=== PATIENT | male | born 1980 | race Caucasian/White ===

== ENCOUNTER 2018-10-11 09:12 | Outpatient (CLI) | payer BC ==
--- NOTE | 2018-10-11 10:05 | RAD ---
FXR Lumbar Spine Min 4 View History: [M [age]. OR 56.16 lumbar radiculopathy] Comparison: None. Findings: There are 5 nonrib-bearing lumbar type vertebrae. No acute malalignment. Mild posterior deg enerative narrowing at the L5/S1 disc space. Mild narrowing between the L5/S1 spinous processes. Poss ible age-indeterminate anterior superior endplate fracture at T12. No listhesis. No translation with flexion or extension. No abnormal calcifications projecting over th e renal shadows. Impression: Mild degenerative disc disease at L5/S1. No translation with flexion or extension. Possible age indeterminate anterior superior endplate deformity at T12.
--- NOTE | 2018-10-11 11:37 | MRI ---
LUMBAR SPINE MRI WITHOUT CONTRAST: Date: 10/11/18 COMPARISON: None. HISTORY: Low back pain, lumbar radiculopathy. TECHNIQUE: Multiplanar, multisequence MR imaging of the lumbar spine obtained without contrast. FINDINGS: The sagittal STIR imaging demonstrates no focal area of osseous marrow edema. Lumbar vertebral body h eight and alignment appears normal. Assuming five lumbar-type vertebral bodies, conus medullaris term inates at L1. At T11-12, there is disc space narrowing and disc desiccation with anterior osteophyte formation, inc ompletely assessed on this exam. T12-L1: Unremarkable. L1-2: Unremarkable. L2-3: Unremarkable. L3-4: Mild bilateral facet hypertrophy with small volume fluid within bilateral facet joints. Interv ertebral disc height and signal intensity within normal limits, with no central canal or neural tigre inal stenosis. L4-5: Unremarkable. L5-S1: There is disc space narrowing and disc desiccation with disc bulge. There is a superimposed l eft paracentral/left foraminal disc protrusion with an associated annular tear. This causes a mild de gree of left lateral recess stenosis. There is mass effect on the exiting L5 nerve root in the post f oraminal region and there is mass effect on the S1 nerve root on the left in the lateral recess. Ther e is mild associated neural foraminal stenosis on the left. No right-sided neural foraminal stenosis. Retroperitoneal structures demonstrate no acute findings. IMPRESSION: Disc disease on the left at L5-S1 as detailed above. POS: [facility]
== END 2018-10-11 09:13 | disposition home or self-care (01) ==
LOC: TBSIIMAG 09:12
PROVIDERS: ATTEND Surgery
DX: M54.16 Radiculopathy, lumbar region (principal); M54.5 Low back pain; M51.37 Other intervertebral disc degeneration, lumbosacral region
CPT/HCPCS: 72110; 72148

== ENCOUNTER 2018-11-29 10:01 | Outpatient (CLI) | payer BC ==
--- NOTE | 2018-11-29 11:26 | MRI ---
MR THORACIC SPINE WITHOUT CONTRAST INDICATION: Pain. Thoracic radiculopathy. COMPARISON: None. FINDINGS: No intrinsic expansile lesion of the thoracic spinal cord identified. Vertebral body heights are maintained. No acute marrow edema. No significant subluxation. Multilevel incidental note of disc bulge/disc osteophyte of the cervical spine, incompletely evaluated. C7-T1: Slight left asymmetric broad-based disc bulge with mild narrowing of the ventral left neural f oramen. No high-grade central canal or right foraminal stenosis T1-T2: Mild disc osteophyte complex with mild left foraminal stenosis. No high-grade central canal or right foraminal stenosis. T2-3: Mild right foraminal narrowing due to right foraminal osteophyte. No significant left foraminal or central canal stenosis T3-4: Mild right asymmetric disc osteophyte with mild right foraminal narrowing. No significant left foraminal, or central canal stenosis T4-5: Mild right foraminal narrowing due to right foraminal osteophyte. No significant left foraminal or central canal stenosis T5-6: No significant stenosis. T6-7: No significant stenosis. T7-8: No significant stenosis. T8-9: No significant stenosis. T9-10: No significant stenosis. T10-11: Right asymmetric ligamentous hypertrophy/calcification with mild narrowing of the right subar ticular zone and encroachment upon the posterior lateral right thoracic spinal cord T11-12: Mild disc degenerative narrowing and left asymmetric disc osteophyte with mild left foraminal narrowing. No significant right foraminal or central canal stenosis IMPRESSION: Mild multilevel degenerative change throughout the thoracic spine without high-grade central canal or neural foraminal stenosis, and no evidence of significant cord compromise.
== END 2018-11-29 10:02 | disposition home or self-care (01) ==
LOC: SCSMRI 10:01
PROVIDERS: ATTEND Anesthesiology Pain Medicine
DX: M47.24 Other spondylosis with radiculopathy, thoracic region (principal)
CPT/HCPCS: 72146

== ENCOUNTER 2019-06-28 07:35 | Outpatient (CLI) | payer BC ==
--- NOTE | 2019-06-28 09:08 | MRI ---
MRI CERVICAL SPINE WITHOUT CONTRAST: HISTORY: Back surgery nine years ago, persistent pain.. COMPARISON: None. FINDINGS: Apropriate T1 marrow signal intensity of the cervical vertebrae. Vertebral body height is maintained. No fracture. No significant STIR hyperintensity to suggest vertebral body edema or ligamentous injury. The visualized brain parenchyma, cervicomedullary junction, cervical cord and the upper thoracic cord have a normal size and signal intensity. C2-C3: No significant central canal stenosis or significant neural foraminal narrowing. C3-C4: Minimal central disc protrusion. No significant central canal stenosis. Mild bilateral neural foraminal narrowing due to uncovertebral hypertrophy. C4-C5: Broad-based disk osteophyte complex causes mass effect upon the ventral thecal sac and ventral cord. There is deformity of the cervical cord. Moderate central canal stenosis. Mild right and [id number] left neural foraminal narrowing due to uncovertebral hypertrophy. C5-C6: Broad-based disk osteophyte complex with a central component. There is mass effect and deformi ty the cervical cord. Mild to moderate central canal stenosis. No cord hyperintensity. Mild right and moderate left neural foraminal narrowing. C6-C7: Central/left paracentral disc protrusion. Mild central canal stenosis. Mild bilateral foramina l narrowing. C7-T1: No significant central canal stenosis or significant neural foraminal narrowing. IMPRESSION: Degenerative changes of the cervical spine as above. Transcribed Date/Time: 06/28/2019 9:18 AM
== END 2019-06-28 07:36 | disposition home or self-care (01) ==
LOC: TBSIIMAG 07:35
PROVIDERS: ATTEND Physician Assistant Surgical
DX: M54.6 Pain in thoracic spine (principal); M89.8X1 Other specified disorders of bone, shoulder; M47.812 Spondylosis without myelopathy or radiculopathy, cervical region
CPT/HCPCS: 72141

== ENCOUNTER 2019-06-28 08:51 | Outpatient (CLI) | payer BC ==
--- NOTE | 2019-06-28 09:15 | RAD ---
4 views of the cervical spine: 06/28/2019 COMPARISON: None HISTORY: Pain FINDINGS: The neutral lateral examination demonstrates no anterolisthesis or retrolisthesis. Minimal posterior osteophyte at C5-6. Also mild anterior osteophyte formation noted at C5-C6. With flexion there is minimal anterolisthesis measuring 3 mm at C3-4 and 1-2 mm at C4-5. No anterolisthesis or ret rolisthesis is noted on the extension imaging. No prevertebral soft tissue swelling. No acute osseous abnormality. IMPRESSION: Mild cervical spine degenerative change as detailed above.
== END 2019-06-28 08:52 | disposition home or self-care (01) ==
LOC: BICRAD 08:51
PROVIDERS: ATTEND Surgery
DX: M54.6 Pain in thoracic spine (principal); M89.8X1 Other specified disorders of bone, shoulder; M47.812 Spondylosis without myelopathy or radiculopathy, cervical region
CPT/HCPCS: 72050; 72141